=== PATIENT | female | born 1955 | race Caucasian/White ===

== ENCOUNTER 2017-11-04 06:10 | Day surgery (SDC) | payer OTHER ==
[~2017-11-04 06:10] MED LIST: COZAAR50 MG PO; JANUMET 50-1,01 EACH PO; MIXED TOCOTRIE1 EACH PO; OMEGA 3 500 SO1 EACH PO; SIMVASTATIN40 MG PO; SYNTHROID112 MCG PO; VIT C-ROSE HIP500 MG PO; VITAMIN D31000 UNIT PO
[2017-11-04] MEDS ORDERED: PERCOCET 5-3251 EACH PO (13:27)
[2017-11-04] MEDS ORDERED: COLACE100 MG PO (13:27)
== END 2017-11-04 17:35 | disposition home or self-care (01) ==
LOC: CIR.AMB 06:10
DX: A63.0 Anogenital (venereal) warts (principal)